=== PATIENT | male | born 1965 | race Caucasian/White ===

== ENCOUNTER 2019-03-08 07:04 | Emergency (ER) | payer OTHER ==
[~2019-03-08] VITALS: Ht 175.3 cm; Wt 70.3 kg
[2019-03-08 07:17] VITALS: BP 135/95
--- NOTE | 2019-03-08 07:18 | NUR ---
ARRIVAL PATIENT ARRIVED TO [facility] WITH FAMILY, C/O OF RIGHT HAND AND ARM PAIN FOR THE PAST 4 DAYS, NO KNOW INJURY, PAIN HAS JUST BECAME WORSE OVER THE PAST COUPLE OF DAYS, PAIN WITH RANGE OF MOTION, CAME TO THE ED FOR FURTHER EVAL BY EDP.
[2019-03-08] MEDS ORDERED: PREDNISONE PO STA (07:29)
[2019-03-08] MEDS ORDERED: TORADOL IM STA (07:29)
[2019-03-08] MEDS ORDERED: PREDNISONE ONE (07:30)
[2019-03-08] MEDS ORDERED: TORADOL ONE (07:30)
--- NOTE | 2019-03-08 07:37 | ER.PDOC ---
General Chief Complaint: Extremities Stated Complaint: RIGHT HAND PAIN TRAVEL OUT OF US: No Time seen by MD: 07:33 Source: patient Exam Limitations: no limitations History of Present Illness Timing/Duration: 4-6 hours Severity: moderate Modifying Factors: improves with immobilization, improves with movement, improves with rest Associated Symptoms: denies symptoms Allergies: Coded Allergies: No Known Allergies (Unverified , 09/25/13) Home Meds No Active Prescriptions or Reported Meds Past Medical History Medical History: no pertinent history Surgical History: no surgical history Social History Smoking: cigarettes Alcohol Use: occassionally Drug Use: none Reviewed Nursing Reviewed: Vital Signs, Abn. Noted Review of Systems All Other Systems: Reviewed and Negative Physical Exam General Appearance: No Apparent Distress EENT: eyes nml inspection Neck: Non-Tender Respiratory: chest non-tender CVS: reg rate & rhythm Gastrointestinal: Normal Bowel Sounds Extremities: Other Neurologic/Psychiatric: radiographer II-XII NML as Tested Skin: Normal Color Lymphatic: No Adenopathy Comments LUPILLO TEST -VE Splinting Splinting : Pre-Made Type: velcro Results/Orders Results/Orders Orders - YADY HARRELL MD Ketorolac Tromethamine (Toradol) (03/08/19 07:29) Prednisone (Prednisone) (03/08/19 07:29) Vital Signs Date Time Temp Pulse Resp B/P (MAP) Pulse Ox O2 Delivery O2 Flow Rate FiO2 03/08/19 07:17 97.8 71 18 135/95 (108) 99 Room Air 97.8 03/08/19 07:15 97.8 71 18 99 Room Air 97.8 03/08/19 07:15 97.8 71 18 97.8 Course Vitals & review Data Vital Sign - Last 24 Hours 03/08/19 03/08/19 03/08/19 07:15 07:15 07:17 Temp 97.8 97.8 97.8 97.8 97.8 97.8 Pulse 71 71 71 Resp 18 18 18 B/P (MAP) 135/95 (108) Pulse Ox 99 99 O2 Delivery Room Air Room Air Sepsis Infection Criteria Pres: None O2 Sat by Pulse Oximetry: 99 Departure Time of Disposition: 08:00 Disposition: 01 HOME, SELF-CARE Impression: Primary Impression: Tenosynovitis of right wrist Condition: Improved Referrals: PCP,UNKNOWN (PCP) PRIMARY CARE PROVIDER Scripts No Active Prescriptions or Reported Meds Duration or Time Spent with Pa: 30 MIN YADY HARRELL MD Mar 08, 2019 07:36
[2019-03-08 07:44] VITALS: BP 135/95
[2019-03-08 07:52] VITALS: BP 135/95
== END 2019-03-08 07:52 | disposition home or self-care (01) ==
LOC: ER 07:04
DX: M65.9 Synovitis and tenosynovitis, unspecified (principal); F17.210 Nicotine dependence, cigarettes, uncomplicated
CPT/HCPCS: 29125; 96372; 99283; J1885; J7512

== ENCOUNTER → 2024-08-14 | Outpatient (CLI) | payer BC | END | disposition home or self-care (01) | LOC: RAD 15:11 | PROVIDERS: ATTEND Nurse Practitioner Family | DX: M16.0 Bilateral primary osteoarthritis of hip (principal); M47.816 Spondylosis without myelopathy or radiculopathy, lumbar region; M25.551 Pain in right hip; M25.552 Pain in left hip | CPT/HCPCS: 73521 ==

== ENCOUNTER 2025-05-01 09:35 | Emergency (ER) | payer SELFPAY ==
[~2025-05-01] VITALS: Ht 175.3 cm; Wt 72.6 kg
[2025-05-01 09:46] VITALS: BP 152/94; PULSE 74; RESP 18; TEMP 98.2; O2SAT 100
[2025-05-01 10:28] LABS: BASOPHIL % 0.3 % (0.2-1.2); EOSINOPHIL # 0.2 10^3/uL (0.0-0.2); EOSINOPHIL % 2.2 % (0.0-5.0); HEMATOCRIT(ML) 40.8 % (37.0-53.0); HEMOGLOBIN 13.7 g/dL (13.9-16.3); LYMPHOCYTES # 1.33 10^3/uL1 (1.0-4.8); LYMPHOCYTES % 14.1 % (24.0-44.0); MEAN CORP HGB 31.6 pg (26-34); MEAN CORP HGB CONCENTRATION 33.6 g/dL (33-36.5); MONOCYTES # 0.5 10^3/uL (0.3-0.8); MONOCYTES % 5.4 % (5.0-12.0); NEUTROPHIL # 7.3 10^3/uL (1.8-7.7); PLATELET COUNT 294 10^3/uL (150-400); RED BLOOD CELL 4.34 10^6/uL (4.50-5.90); WHITE BLOOD CELL 9.4 10^3/uL (4.5-11.0)
[2025-05-01 10:33] LABS: +ADD MANUAL DIFF(NO CHRG) NO
[2025-05-01 10:49] LABS: ALANINE AMINOTRANSFERASE(ML) 21 U/L (12-78); ALBUMIN(ML) 3.7 g/dL (3.4-5.0); ALBUMIN/GLOBULIN RATIO 1.088; ALKALINE PHOSPHATASE 114 U/L (50-136); ANION GAP 11.7; ASPARTATE AMINO TRANSFERASE 13 U/L (0-35); CALCIUM 9.3 mg/dL (8.4-10.5); CARBON DIOXIDE 27.7 mmol/L (20.0-32); CREATININE SERUM 1.34 mg/dL (0.59-1.40); EST GFR, NON-AA 54.4 (>/=60); GLUCOSE 96 mg/dL (74-106); POTASSIUM 4.4 mmol/L (3.6-5.2); SODIUM 139 mmol/L (132-145)
[2025-05-01 10:50] LABS: TROPONIN I HIGH SENSITIVITY < 4 ng/L (0-75)
[2025-05-01 12:04] VITALS: BP 140/78; PULSE 56; RESP 18; O2SAT 99
[2025-05-01 12:39] VITALS: BP 130/68; PULSE 55; RESP 18; O2SAT 97
== END 2025-05-01 12:39 | disposition home or self-care (01) ==
LOC: ER 09:35
DX: R55 Syncope and collapse (principal); F17.210 Nicotine dependence, cigarettes, uncomplicated
CPT/HCPCS: 36415; 71045; 80053; 80307; 82077; 84484; 85025; 93005; 99285